=== PATIENT | female | born 1990 | race Caucasian/White ===

== ENCOUNTER 2017-03-13 18:12 | Emergency (ER) | payer BC ==
[~2017-03-13] VITALS: Ht 157.5 cm; Wt 66.0 kg
[2017-03-13 18:14] VITALS: BP 140/95
[2017-03-13] MEDS ORDERED: KETOROLAC 30 MG/1 ML ONE (18:47)
[2017-03-13] MEDS ORDERED: HYDROcodone/APAP 5/325 TABLET PO ONE (18:51)
[2017-03-13] MEDS ORDERED: HYDROcodone/APAP 5/325 TABLET ONE (18:51)
[2017-03-13] MEDS ORDERED: KETOROLAC 60 MG/2 ML IM ONE (19:00)
== END 2017-03-13 19:22 | disposition home or self-care (01) ==
LOC: ED 19:21
DX: M70.21 Olecranon bursitis, right elbow (principal); F17.200 Nicotine dependence, unspecified, uncomplicated
CPT/HCPCS: 73080; 96372; 99284; J1885